=== PATIENT | female | born 1975 | race Hispanic/Latino ===

== ENCOUNTER 2020-11-17 21:04 | Emergency (ER) | payer SELFPAY ==
--- NOTE | 2020-11-17 22:17 | CT ---
CT BRAIN NONCONTRAST: DATE: 11/17/2020 HISTORY: 44-year-old female with headache and photophobia. FINDINGS: There is no evidence of acute intra-axial or extra-axial hemorrhage. There is no midline shift or any other mass effect. There is no extra-axial fluid collection. There is no evidence of obstructive hydrocephalus. Calvarium is intact. Mild partial opacification of left sphenoid air cell. IMPRESSION: No acute intracranial findings.
[2020-11-17] MEDS ORDERED: Lisinopril 10 MG TAB ONE (22:55)
== END 2020-11-17 23:00 | disposition home or self-care (01) ==
LOC: NAV ERS 21:04
DX: I10 Essential (primary) hypertension (principal); H11.32 Conjunctival hemorrhage, left eye
CPT/HCPCS: 70450

== ENCOUNTER 2022-10-18 15:12 | Emergency (ER) | payer SELFPAY ==
[2022-10-18] MEDS ORDERED: Ketorolac Tromethamine 30 MG/ML VIAL ONE (16:12)
[2022-10-18 16:15] LABS: #Basophils 0.1 thou/uL (0.0-0.2); #Eosinphils 0.1 thou/uL (0.0-0.7); #Lymphocytes 2.1 thou/uL (1.20-3.40); #Monocytes 0.5 thou/uL (0.11-0.59); #Neutrophils 4.9 thou/uL (1.40-6.50); %Basophils 0.8 % (0.0-1.0); %Eosinophils 0.9 % (0.0-10.0); %Lymphocytes 27.7 % (21.0-51.0); %Monocytes 6.8 % (0.0-10.0); %Neutrophils 63.7 % (42.0-75.0); Hemoglobin 13.5 g/dL (12.0-16.0); Mean Corpuscular HGB CONC 33.4 g/dL (32.0-36.0); Mean Corpuscular Volume 92.9 fl (78.0-98.0); Mean Platelet Volume 10.3 fL (7.4-10.4); Platelet Count 181 10x3/uL (130-400); RBC Distribution Width 12.3 % (11.5-14.5); Red Blood Cell (RBC) Count 4.35 mill/uL (4.20-5.40); White Blood Cell (WBC) Count 7.6 10x3/uL (4.8-10.8)
[2022-10-18 16:30] LABS: ALT (SGPT) 13 U/L (8-55); Albumin 4.1 g/dL (3.5-5.0); Alkaline Phosphatase 56 U/L (40-110); Anion Gap 13 mmol/L (10-20); BUN (Urea Nitrogen) 15 mg/dL (7.0-18.7); CRP (Inflammatory) 1.14 mg/dL (= or < 0.5); Calc. Creatinine Clearance 0 mL/min (70-130); Calcium 9.6 mg/dL (7.8-10.44); Carbon Dioxide 23 mmol/L (22-29); Chloride 107 mmol/L (98-107); Estimated GFR 113; Globulin 3.4 g/dL (2.4-3.5); Glucose 104 mg/dL (70-105); Potassium 4.2 mmol/L (3.5-5.1); Protein, Total 7.5 g/dL (6.0-8.3); Sodium 139 mmol/L (136-145)
[2022-10-18 16:36] LABS: AST (SGOT) 23 U/L (5-34)
== END 2022-10-18 18:00 | disposition home or self-care (01) ==
LOC: NAV ERS 15:12
DX: E06.9 Thyroiditis, unspecified (principal)
CPT/HCPCS: 80053; 83605; 84443; 85025; 86140; 96374; J1885

== ENCOUNTER 2025-08-29 18:11 | Outpatient (CLI) | payer OTHER | END 2025-08-29 18:12 | disposition home or self-care (01) | LOC: NAV RAD 18:11 | PROVIDERS: ATTEND Nurse Practitioner Family | DX: M79.671 Pain in right foot (principal) ==